=== PATIENT | female | born 1955 | race Caucasian/White ===

== ENCOUNTER → 2022-07-09 17:11 | Outpatient (CLI) | payer MEDICARE, SELFPAY ==
--- NOTE | 2022-07-09 | DI.MG.S_ITS ---
BILATERAL DIGITAL SCREENING MAMMOGRAM 3D/2D WITH CAD: 07/09/2022 CLINICAL: Routine screening. Family history of breast cancer. Comparison is made to exams dated: 04/24/2020 mammogram, 07/14/2017 mammogram, and 07/13/2016 mammogram - outside location. There are scattered areas of fibroglandular density in both breasts (category b / 25%-50% glandular tissue). Current study was also evaluated with a Computer Aided Detection (CAD) system. No significant masses, calcifications, or other findings are seen in either breast. There has been no significant interval change. IMPRESSION: NEGATIVE There is no mammographic evidence of malignancy. A 1 year screening mammogram is recommended. Based on the Tyrer Cuzick model (a risk assessment model) the patient's lifetime risk is 5.0% and her 10 year risk is 3.0%. According to the ACR, ACS, and NCCN guidelines, an annual breast MRI exam along with mammogram is recommended if the patient's lifetime risk is 20% or greater. This exam was interpreted at Station ID: [id number]. NOTE: For mammograms, a report in lay terms will be sent to the patient. Approximately 15% of breast malignancies will not be visualized mammographically. In the management of a palpable breast mass, a negative mammogram must not discourage biopsy of a clinically suspicious lesion. Electronically Signed By: Nabil martínez/cricket:07/10/2022 10:11:08 letter sent: Normal Exam ACR BI-RADS Category 1: Negative 3341F
== END ==
PROVIDERS: PCP Internal Medicine; Referring Provider Internal Medicine; Visit Provider Internal Medicine
DX: Z12.31 Encounter for screening mammogram for malignant neoplasm of breast (principal); Z80.3 Family history of malignant neoplasm of breast
CPT/HCPCS: 77063; 77067

== ENCOUNTER → 2022-12-04 16:09 | Outpatient (CLI) | payer MEDICARE, SELFPAY ==
--- NOTE | 2022-12-04 | DI.ECHO.S_ITS ---
[facility] [address] [place] [address] [facility]---------+ [facility] +---------+ : : [id number] : : : : [place], [place] : : : : [address] : : : : Phone: [phone]---------+ Echocardiogram Report + + :Name: CUONG CASPER EStudy Date: 12/04/2022 Height: 67 in : :[facility] : Weight: 375 lb : : Gender: Female BSA: 2.6 m2 : :: 1955 Age: 67 yrs BP: 132/70 mmHg: :Reason For Study: Nonrheumatic mitral insufficiency, s/p : :mitral valve repair : :Ordering Physician: Marleny : :Monica Stevenson Performed By: Arlin Ahmadi : :Referring: MARLENY STEVENSON : + + Interpretation Summary The left ventricle is normal in size and wall thickness. The ejection fraction is estimated to be 55-60%. Diastolic parameters suggest a pseudonormalization pattern, consistent with probable elevated filling pressures. The right ventricle is normal in size and function. The mitral valve has been surgically repaired and an annuloplasty ring sewn in place. Mitral annulus calcification as well as thickening of the mitral leaflets. Decreased excursion of posterior mitral leaflet with some calcification including calcification of chordae. Associated eccentric moderate mitral regurgitation. Peak E velocity across mitral valve about 1.44 m/s and mean gradient about 4 mmHg. Mild mitral stenosis. No significant mitral stenosis. There is mild aortic regurgitation. There is mild to moderate tricuspid regurgitation. The right ventricular systolic pressure is estimated to be at least 32 mmHg based on an estimated right atrial pressure of 8 mm Hg. Procedure: A two-dimensional transthoracic echocardiogram with color flow and Doppler was performed. The study quality was technically adequate. The patient had an echocardiogram, but there is no comparison study available. The patient was in sinus rhythm with heart rates between 65-67 bpm during the exam. Left Ventricle: The left ventricle is normal in size and wall thickness. There is no thrombus. The ejection fraction is estimated to be 55-60%. There are no focal wall motion abnormalities. Diastolic parameters suggest a pseudonormalization pattern, consistent with probable elevated filling pressures. Right Ventricle: The right ventricle is normal in size and function. Atria: The left atrium is moderately dilated. The right atrium is normal in size. There is no Doppler evidence for an interatrial shunt. Mitral Valve: Mitral annulus calcification as well as thickening of the mitral leaflets. Decreased excursion of posterior mitral leaflet with some calcification including calcification of chordae. Associated eccentric moderate mitral regurgitation. Peak E velocity across mitral valve about 1.44 m/s and mean gradient about 4 mmHg. Mild mitral stenosis. No significant mitral stenosis. The mitral valve has been surgically repaired and an annuloplasty ring sewn in place. There is moderate mitral regurgitation. Aortic Valve: The aortic valve is trileaflet. The aortic valve opens well. The aortic valve is slightly calcified. There is discrete nodular thickening of the right coronary cusp. There is no aortic valve stenosis. There is mild aortic regurgitation. Tricuspid Valve: The tricuspid valve is normal. There is mild to moderate tricuspid regurgitation. The right ventricular systolic pressure is estimated to be at least 32 mmHg based on an estimated right atrial pressure of 8 mm Hg. Pulmonic Valve: The pulmonic valve leaflets are thin and pliable; valve motion is normal. There is mild pulmonic regurgitation. Great Vessels: The aortic root is normal size. The ascending aorta is normal in size. The IVC is of normal diameter and collapses less than 50% with a sniff. This suggests a right atrial pressure of 8 mm Hg. Pericardium/ Pleura There is no pericardial effusion. There is no pleural effusion. MMode/2D Measurements & Calculations LVIDd: 4.8 cm LVOT diam: 2.1 cm LVIDs: 3.3 cm Ao root diam: 3.4 cm FS: 31.9 % asc Aorta Diam: 2.9 cm EPSS: 0.31 cm IVSd: 1.0 cm LVPWd: 0.90 cm LV velez. diameter/BSA (cm/m^2): 1.8 LV sys. diameter/BSA (cm/m^2): 1.2 LA A2 area: 28.0 cm2 RA long axis: 4.0 cm LA A4 area: 20.3 cm2 RA area: 13.6 cm2 LA length (vol): 5.0 cm RA vol: 39.0 ml LA vol: 96.0 ml RA : 14.8 ml/m2 LA vol index: 36.4 ml/m2 IVC diam: 1.9 cm RVD1 (basal): 4.1 cm TAPSE: 1.9 cm Doppler Measurements & Calculations Ao V2 max: 141.6 cm/sec LVOT Max Dhruv: 99.1 cm/sec Ao V2 mean: 109.5 cm/sec LV V1 max P.9 mmHg Ao max P.0 mmHg LV V1 VTI: 21.1 cm Ao mean P.2 mmHg BRIT(I,D): 2.3 cm2 Ao V2 VTI: 32.9 cm BRIT(V,D): 2.5 cm2 sev ratio: 0.64 BRIT indexed to BSA (cm^2/m^2): 0.88 AI P1/2t: 557.6 msec AI dec slope: 227.1 cm/sec2 MV E max dhruv: 144.4 cm/sec TR max dhruv: 245.1 cm/sec MV A max dhruv: 122.0 cm/sec TR max P.0 mmHg MV E/A: 1.2 PA V2 max: 89.2 cm/sec Med Peak E' Dhruv: 5.9 cm/sec PA V2 mean: 67.4 cm/sec E/E' med: 24.5 PA mean P.0 mmHg Lat Peak E' Dhruv: 12.6 cm/sec E/E' lat: 11.4 E/e' average: 18.0 MV dec time: 0.27 sec MVA(VTI): 1.6 cm2 MR ERO: 0.11 cm2 MV V2 mean: 93.2 cm/sec MR PISA: 1.6 cm2 MV mean P.0 mmHg MR flow rate: 60.3 cm3/sec MV V2 VTI: 49.0 cm MR PISA radius: 0.51 cm SV(LVOT): 76.6 ml Reading Physician:12:58 PM
== END ==
PROVIDERS: PCP Internal Medicine; Referring Provider Internal Medicine Cardiovascular Disease; Visit Provider Internal Medicine Cardiovascular Disease
DX: I08.3 Combined rheumatic disorders of mitral, aortic and tricuspid valves (principal)
CPT/HCPCS: 93306

== ENCOUNTER → 2023-08-23 11:10 | Outpatient (CLI) | payer MEDICARE, SELFPAY ==
[2023-08-23 12:24] LABS: Hematocrit 37.4 % (36-46); Hemoglobin 12.7 g/dL (12.0-16.0); Mean Corpuscular HGB Conc 33.9 % (30-36); Mean Corpuscular Hemoglobin 31.9 PG (26-34); Mean Corpuscular Volume 94.1 fL (80-100); Platelet Count 211 X10^3/uL (150-400); Red Blood Cell Count 3.98 X10^6/uL (4.0-5.2); Red Cell Distribution Width 13.1 % (11.6-14.8)
[2023-08-23 12:52] LABS: Alanine Aminotransferase 27 IU/L (<35); Albumin 4.4 g/dL (3.5-5.0); Albumin Globulin Ratio 1.4 (1.0-2.8); Alkaline Phosphatase 44 U/L (38-126); Aspartate Aminotransferase 35 IU/L (14-36); BUN Creatinine Ratio 19.5 (6-22); Bilirubin Total 0.7 mg/dL (0.2-1.3); Blood Urea Nitrogen 15 mg/dL (7-17); Calcium 9.5 mg/dL (8.4-10.2); Carbon Dioxide 28 mmol/L (22-32); Chloride 105 mmol/L (98-107); Cholesterol 229 mg/dL (140-199); Estimated Glomerular Filt Rate > 60 mL/min (>60); Globulin 3.1 g/dL (1.7-4.1); Glucose 88 mg/dL (80-110); HDL Cholesterol 66 mg/dL (40-60); HEMOLYSIS < 15 (0-50); LDL Cholesterol Calculated 150 mg/dL (<100); Sodium 138 mmol/L (137-145); Total Protein 7.5 g/dL (6.3-8.2); Triglycerides 66 mg/dL (35-150)
[2023-08-23 13:11] LABS: TSH w/ Reflex to FT4 1.83 uIU/mL (0.47-4.68)
[2023-08-25 11:59] LABS: Calcium 9.4 mg/dL (8.7-10.3); Parathyroid Hormone, Intact 73 pg/mL (15-65)
== END ==
PROVIDERS: PCP Internal Medicine; Referring Provider Student in an Organized Health Care Education/Training Program; Visit Provider Student in an Organized Health Care Education/Training Program
DX: M81.0 Age-related osteoporosis without current pathological fracture (principal); I10 Essential (primary) hypertension; I34.0 Nonrheumatic mitral (valve) insufficiency
CPT/HCPCS: 36415; 80053; 80061; 82310; 83970; 84443; 85027

== ENCOUNTER → 2023-09-21 13:54 | Outpatient (CLI) | payer MEDICARE, SELFPAY ==
--- NOTE | 2023-09-21 13:55 | DI.RAD.S_ITS ---
PROCEDURE: XR LUMBAR SPINE MIN 4V INDICATIONS: LOW BACK PAIN TECHNIQUE: 5 views of the lumbar spine were acquired, including bilateral oblique views. COMPARISON: None. FINDINGS: Bones: Moderate leftward spinal curvature centered at L2-L3. There is 5 mm of anterolisthesis of L3 on L4. 5 mm of anterolisthesis of L5 on S1. Vertebral body heights are well maintained. No definite traumatic subluxation. Oblique views are limited by overlapping bowel gas and spondylotic positioning, no definite abnormality. Overall moderate degenerative changes with facet arthropathy, disc space height loss, and osteophytes. Soft tissues: Moderate fecal loading. Sternotomy and cardiac valve device. No suspicious calcifications. IMPRESSION: Moderate degenerative changes and multilevel spondylolisthesis. Leftward scoliosis. If there is high concern for further derangement, consider MRI evaluation. Dictated by: Marques Balderrama M.D. on 09/21/2023 at 15:29 Approved by: Marques Balderrama M.D. on 09/21/2023 at 15:31
== END ==
PROVIDERS: PCP Internal Medicine; Referring Provider Anesthesiology; Visit Provider Anesthesiology
DX: M47.816 Spondylosis without myelopathy or radiculopathy, lumbar region (principal); M43.16 Spondylolisthesis, lumbar region; M43.17 Spondylolisthesis, lumbosacral region; M41.9 Scoliosis, unspecified; M54.50 Low back pain, unspecified
CPT/HCPCS: 72110

== ENCOUNTER → 2023-10-11 12:54 | Outpatient (CLI) | payer OTHER, SELFPAY ==
--- NOTE | 2023-10-11 12:55 | DI.MG.S_ITS ---
BILATERAL DIGITAL SCREENING MAMMOGRAM 3D/2D WITH CAD: 10/11/2023 CLINICAL: Routine screening. Comparison is made to exams dated: 07/09/2022 mammogram - [facility], 04/24/2020 mammogram, and 07/14/2017 mammogram - outside location. There are scattered areas of fibroglandular density in both breasts (category b / 25%-50% glandular tissue). Current study was also evaluated with a Computer Aided Detection (CAD) system. No significant masses, calcifications, or other findings are seen in either breast. There has been no significant interval change. IMPRESSION: NEGATIVE There is no mammographic evidence of malignancy. A 1 year screening mammogram is recommended. Based on the Tyrer Cuzick model (a risk assessment model) the patient's lifetime risk is 4.8% and her 10 year risk is 3.0%. According to the ACR, ACS, and NCCN guidelines, an annual breast MRI exam along with mammogram is recommended if the patient's lifetime risk is 20% or greater. This exam was interpreted at Station ID: [id number]. NOTE: For mammograms, a report in lay terms will be sent to the patient. Approximately 15% of breast malignancies will not be visualized mammographically. In the management of a palpable breast mass, a negative mammogram must not discourage biopsy of a clinically suspicious lesion. Electronically Signed By: Shana lopez/cricket:10/11/2023 14:55:48 letter sent: Normal Exam ACR BI-RADS Category 1: Negative 3341F
== END ==
PROVIDERS: PCP Internal Medicine; Referring Provider Internal Medicine; Visit Provider Internal Medicine
DX: Z12.31 Encounter for screening mammogram for malignant neoplasm of breast (principal); R92.323 Mammographic fibroglandular density, bilateral breasts
CPT/HCPCS: 77063; 77067

== ENCOUNTER → 2024-02-22 17:01 | Outpatient (CLI) | payer MEDICARE, SELFPAY ==
[2024-02-22 17:55] LABS: Aspartate Aminotransferase 34 IU/L (14-36); Cholesterol 137 mg/dL (140-199); HDL Cholesterol 67 mg/dL (40-60); LDL Cholesterol Calculated 41 mg/dL (<100); Triglycerides 144 mg/dL (35-150)
== END ==
PROVIDERS: PCP Internal Medicine; Referring Provider Internal Medicine; Visit Provider Internal Medicine
DX: E78.2 Mixed hyperlipidemia (principal)
CPT/HCPCS: 36415; 80061; 84450

== ENCOUNTER → 2024-03-06 13:42 | Outpatient (CLI) | payer MEDICARE, SELFPAY ==
--- NOTE | 2024-03-06 13:43 | DI.MRI.S_ITS ---
PROCEDURE: MR LUMBAR SPINE WO CON INDICATIONS: Chronic low back pain, RLE pain TECHNIQUE: Noncontrast sagittal T1 spin echo and T2 fast echo, sagittal STIR, and T2 fast spin echo through the lumbar spine. In cases with scoliosis, additional coronal T2 fast spin echo may be performed. COMPARISON: [facility], CR, XR LUMBAR SPINE MIN 4V, 09/21/2023, 14:02. FINDINGS: Image quality: Excellent. Alignment and Curvature: Moderate levocurvature centered at L1. Trace anterolisthesis of L3 on L4 and L5 on S1. Bone Marrow: Marrow is of normal overall signal. No acute vertebral body compression fractures. Spinal Cord: Conus medullaris terminates at the L1-L2 level. Visualized cord demonstrates normal signal and size. Paraspinous Soft Tissues: No paravertebral masses. T11-T12: No canal stenosis or foraminal stenosis. T12-L1: Disc bulge. No canal stenosis. Mild right foraminal stenosis. L1-L2: Disc bulge. Mild facet hypertrophy. No canal stenosis. Quie-qs-ewxpahzz right foraminal stenosis. L2-L3: Disc bulge. Facet hypertrophy. No canal stenosis. Xdsv-cu-yzomphzz right foraminal stenosis. L3-L4: Disc bulge. Trace anterolisthesis of L3 on L4. Prominent bilateral facet hypertrophy. No canal stenosis or significant foraminal stenosis. L4-L5: Severe chronic disc height loss. Trace disc bulge. Facet hypertrophy. No canal stenosis. Deox-qi-jjlncsfv left foraminal stenosis. L5-S1: Trace anterolisthesis of L5 on S1. Disc bulge. Facet hypertrophy. No canal stenosis. Mild right foraminal stenosis. Moderate to severe left foraminal stenosis secondary to foraminal disc bulge with a degree of left foraminal L5 nerve root impingement. IMPRESSION: 1. Moderate levocurvature. 2. Multilevel facet arthropathy. 3. No canal stenosis. 4. Multilevel foraminal narrowing as described above. There is no right-sided foraminal nerve root impingement. At L5-S1, there is a degree of left foraminal L5 nerve root impingement. Dictated by: Angel Reyes M.D. on 03/06/2024 at 15:09 Approved by: Angel Reyes M.D. on 03/06/2024 at 15:17
== END ==
PROVIDERS: PCP Internal Medicine; Referring Provider Anesthesiology; Visit Provider Anesthesiology
DX: M47.816 Spondylosis without myelopathy or radiculopathy, lumbar region (principal); M47.817 Spondylosis without myelopathy or radiculopathy, lumbosacral region; M48.07 Spinal stenosis, lumbosacral region; M48.061 Spinal stenosis, lumbar region without neurogenic claudication; M54.50 Low back pain, unspecified; M79.604 Pain in right leg
CPT/HCPCS: 72148

== ENCOUNTER → 2024-08-30 09:02 | Outpatient (CLI) | payer MEDICARE, SELFPAY ==
[2024-08-30 09:54] LABS: Hematocrit 36.6 % (36-46); Hemoglobin 12.5 g/dL (12.0-16.0); Mean Corpuscular Hemoglobin 32.4 PG (26-34); Mean Corpuscular Volume 95.1 fL (80-100); Platelet Count 220 X10^3/uL (150-400); Red Blood Cell Count 3.85 X10^6/uL (4.0-5.2); Red Cell Distribution Width 12.9 % (11.6-14.8); White Blood Cell Count 4.4 X10^3/uL (4.5-11.0)
[2024-08-30 10:27] LABS: Alanine Aminotransferase 25 IU/L (<35); Albumin 4.1 g/dL (3.5-5.0); Albumin Globulin Ratio 1.6 (1.0-2.8); Alkaline Phosphatase 35 U/L (38-126); Aspartate Aminotransferase 32 IU/L (14-36); BUN Creatinine Ratio 22.9 (6-22); Bilirubin Total 0.6 mg/dL (0.2-1.3); Blood Urea Nitrogen 16 mg/dL (7-17); Calcium 9.5 mg/dL (8.4-10.2); Carbon Dioxide 28 mmol/L (22-32); Chloride 102 mmol/L (98-107); Cholesterol 150 mg/dL (140-199); Estimated Glomerular Filt Rate > 60 mL/min (>60); Globulin 2.5 g/dL (1.7-4.1); Glucose 86 mg/dL (80-110); HDL Cholesterol 74 mg/dL (40-60); HEMOLYSIS < 15 (0-50); LDL Cholesterol Calculated 64 mg/dL (<100); Sodium 136 mmol/L (137-145); Total Protein 6.6 g/dL (6.3-8.2); Triglycerides 58 mg/dL (35-150)
[2024-08-30 10:54] LABS: Creatinine Urine Random 151.36 mg/dL
[2024-08-30 10:58] LABS: Microalbumin Urine Random 0.7 mg/dL (0-1.6)
== END ==
PROVIDERS: PCP Internal Medicine; Referring Provider Internal Medicine; Visit Provider Internal Medicine
DX: E21.3 Hyperparathyroidism, unspecified (principal); I10 Essential (primary) hypertension; I34.0 Nonrheumatic mitral (valve) insufficiency
CPT/HCPCS: 36415; 80053; 80061; 82043; 82397; 82570; 85027

== ENCOUNTER → 2025-04-11 09:35 | Outpatient (CLI) | payer MEDICARE, SELFPAY ==
--- NOTE | 2025-04-11 09:37 | DI.NM.S_ITS ---
PROCEDURE: NM TASH PERF SPECT REST & STR Rest and exercise myocardial perfusion SPECT with gated imaging and ejection fraction RADIOPHARMACEUTICAL: 26.7 mCi Tc-99m sestamibi IV at rest and 26.8 mCi Tc-99m sestamibi IV at peak exercise. A 2-day protocol was performed. INDICATIONS: Dyspnea on exertion TECHNIQUE: Radiopharmaceutical was injected at peak stress test, and also at rest. SPECT images were obtained. SPECT myocardial perfusion images were displayed in short axis, horizontal long axis, and vertical long axis views. Gated images were reviewed using Stir software. COMPARISON: None. CARDIAC STRESS: A standard Abhijit treadmill exercise tolerance test was performed by the patient under the supervision of an attending staff. The patient exercised for whole 8 minutes and 0 seconds; 10.1 METS; functional aerobic impairment (SIMONE) is -41%. Hemodynamic data: There is normal blood pressure and heart rate response to exercise stress. Patient achieved 92% of maximum predicted heart rate at peak exercise. Peak blood pressure 166/92. Symptoms: Patient denied chest pain during exercise. She did exhibit moderate shortness of breath. EKG: Rest ECG sinus rhythm. Exercise ECG sinus tachycardia, no ST segment changes, rare PVCs. FINDINGS: Raw data: There is good myocardial labeling by radiotracer. No significant motion artifacts. Wskl-bz-ksavm ratio is 0.25 (normal is less than 0.38 for sestamibi tracer, and less than 0.50 for thallium tracer). Left ventricle function: Gated images demonstrate normal left ventricle wall thickening. No segmental wall motion abnormality. No transient ischemic dilation; TID is 0.96 (normal less than 1.3). The left ventricle resting end-diastolic volume is 119 mL. Left ventricle stress ejection fraction is 69%; normal values are above 45%. Myocardial perfusion: There is normal distribution of activity in the left and right ventricular myocardium. No fixed or reversible perfusion defects. IMPRESSION: Low risk study. No evidence of exercise-induced ischemia on ECG or SPECT imaging. Normal LV size and function. Normal hemodynamic response. Very good exercise capacity. Dictated by: Shayla Way D.O. on 04/16/2025 at 16:55 Approved by: Shayla Way D.O. on 04/16/2025 at 16:59
== END ==
LOC: NUCM 09:36
PROVIDERS: PCP Internal Medicine; Referring Provider Nurse Practitioner Acute Care; Visit Provider Nurse Practitioner Acute Care
DX: R07.9 Chest pain, unspecified (principal); R06.09 Other forms of dyspnea
CPT/HCPCS: 78452; 93017; A9502

== ENCOUNTER → 2025-06-22 10:30 | Outpatient (CLI) | payer MEDICARE, SELFPAY ==
--- NOTE | 2025-06-22 10:33 | DI.US.S_ITS ---
PROCEDURE: US CAROTID DOPPLER BI INDICATIONS: Hx of arotid artery dissection TECHNIQUE: Color and pulse Doppler interrogation was performed of both carotid systems, with image documentation and velocity measurements. COMPARISON: None. FINDINGS: Stenosis calculations are based on SRU (Society of Radiologists in Ultrasound) criteria. Right side: Brachial blood pressure: 121/69 mm Hg. Common carotid artery peak systolic velocity: 93 cm/sec. Internal carotid artery peak systolic velocity: 101 cm/sec. Internal carotid artery end diastolic velocity: 30 cm/sec. External carotid artery peak systolic velocity: 80 cm/sec. ICA/CCA peak systolic ratio: 1.1 . Jose scale imaging description: Mild atherosclerotic plaque, including noncalcified plaque of the distal common carotid artery. Percent internal carotid artery stenosis: Less than 50 percent . Vertebral artery: Flow direction is antegrade. Left side: Brachial blood pressure: 108/70 mm Hg. Common carotid artery peak systolic velocity: 66 cm/sec. Internal carotid artery peak systolic velocity: 88 cm/sec. Internal carotid artery end diastolic velocity: 29 cm/sec. External carotid artery peak systolic velocity: 110 cm/sec. ICA/CCA peak systolic ratio: 1.3 . Jose scale imaging description: Extensive atherosclerotic plaque. Percent internal carotid artery stenosis: Less than 50 percent . Vertebral artery: Flow direction is antegrade. IMPRESSION: 1. In the right carotid artery, there is less than 50 percent stenosis based on peak systolic velocity criteria. Soft plaque noted in the distal common carotid artery, which has a high risk for rupture and embolization. 2. In the left carotid artery, there is less than 50 percent stenosis based on peak systolic velocity criteria. 3. Antegrade vertebral arteries. Dictated by: Zi Godfrey M.D. on 06/22/2025 at 15:09 Approved by: Zi Godfrey M.D. on 06/22/2025 at 15:10
== END ==
LOC: US 10:32
PROVIDERS: PCP Family Medicine; Referring Provider Internal Medicine Cardiovascular Disease; Visit Provider Internal Medicine Cardiovascular Disease
DX: I65.23 Occlusion and stenosis of bilateral carotid arteries (principal); Z86.79 Personal history of other diseases of the circulatory system
CPT/HCPCS: 93880

== ENCOUNTER → 2025-07-30 08:33 | Outpatient (CLI) | payer MEDICARE, SELFPAY ==
[2025-07-30 09:22] LABS: Hematocrit 37.6 % (36-46); Hemoglobin 12.9 g/dL (12.0-16.0); Mean Corpuscular HGB Conc 34.4 % (30-36); Mean Corpuscular Hemoglobin 32.2 PG (26-34); Mean Corpuscular Volume 93.7 fL (80-100); Platelet Count 228 X10^3/uL (150-400)
[2025-07-30 09:50] LABS: Albumin 4.5 g/dL (3.5-5.0); Blood Urea Nitrogen 16 mg/dL (7-17); Calcium 9.2 mg/dL (8.4-10.2); Carbon Dioxide 28 mmol/L (22-32); Chloride 103 mmol/L (98-107); Estimated Glomerular Filt Rate > 60 mL/min (>60); Glucose 89 mg/dL (70-99); HEMOLYSIS < 15 (0-50); Phosphorous 3.6 mg/dL (2.8-4.1); Potassium 4.2 mmol/L (3.4-5.1); Sodium 137 mmol/L (137-145)
[2025-07-30 09:52] LABS: Alanine Aminotransferase 32 IU/L (<35); Albumin 4.3 g/dL (3.5-5.0); Albumin Globulin Ratio 1.4 (1.0-2.8); Alkaline Phosphatase 61 U/L (38-126); Blood Urea Nitrogen 16 mg/dL (7-17); Calcium 9.0 mg/dL (8.4-10.2); Carbon Dioxide 28 mmol/L (22-32); Chloride 103 mmol/L (98-107); Cholesterol 166 mg/dL (140-199); Estimated Glomerular Filt Rate > 60 mL/min (>60); Globulin 3.0 g/dL (1.7-4.1); Glucose 85 mg/dL (70-99); HDL Cholesterol 71 mg/dL (40-60); HEMOLYSIS < 15 (0-50); Potassium 4.1 mmol/L (3.4-5.1); Sodium 136 mmol/L (137-145); Total Protein 7.3 g/dL (6.3-8.2); Triglycerides 86 mg/dL (35-150)
[2025-07-30 10:05] LABS: Vitamin D 25 Hydroxy (D3) 70.3 ng/mL (30.0-100.0)
[2025-07-30 10:19] LABS: TSH w/ Reflex to FT4 1.84 uIU/mL (0.47-4.68)
== END ==
PROVIDERS: PCP Family Medicine; Referring Provider Family Medicine; Visit Provider Student in an Organized Health Care Education/Training Program
DX: Z00.00 Encounter for general adult medical examination without abnormal findings (principal); I50.32 Chronic diastolic (congestive) heart failure; M81.0 Age-related osteoporosis without current pathological fracture; E21.3 Hyperparathyroidism, unspecified; E66.3 Overweight; G47.33 Obstructive sleep apnea (adult) (pediatric); L65.9 Nonscarring hair loss, unspecified
CPT/HCPCS: 36415; 80053; 80061; 80069; 82306; 84443; 85027

== ENCOUNTER → 2025-08-18 09:06 | Outpatient (CLI) | payer MEDICARE, SELFPAY ==
--- NOTE | 2025-08-18 09:08 | DI.MG.S_ITS ---
MM screening mammo BI: 08/18/2025. BI-RADS: 1 CLINICAL: 70-year old female for bilateral screening mammogram. Tyrer-Cuzick lifetime risk of 4.4%. No personal or first-degree family history of breast cancer. Current reported family history of breast cancer: paternal aunt. The patient is status- post reduction mammoplasty. PRIOR EXAMS 10/11/2023, 07/09/2022. MAMMOGRAPHY TECHNIQUE: 2D and 3D (tomosynthesis) digital mammographic views obtained, with additional images as needed for full coverage. Current study was also evaluated with a Computer Aided Detection (CAD) system. DENSITY B. There are scattered areas of fibroglandular density. MAMMOGRAPHY FINDINGS Bilateral: No suspicious mass, asymmetry, microcalcification, or other abnormality seen. No significant change from comparison. IMPRESSION: * No evidence of malignancy. RECOMMENDATIONS Bilateral * Annual screening mammography. OVERALL ASSESSMENT CATEGORY BI-RADS-1: Negative. The [employer] recommends annual screening mammography beginning at age 40 for women with average risk of breast cancer. ELECTRONICALLY SIGNED: Daria Anthony M.D. on 08/20/2025 at 09:22:47 AM PT Interpreting Station ID: [id number]
== END ==
LOC: MAMMO 09:07
PROVIDERS: PCP Family Medicine; Referring Provider Family Medicine; Visit Provider Family Medicine
DX: Z12.31 Encounter for screening mammogram for malignant neoplasm of breast (principal); Z80.3 Family history of malignant neoplasm of breast
CPT/HCPCS: 77063; 77067

== ENCOUNTER 2025-09-10 19:28 | Emergency (ER) | payer MEDICARE, SELFPAY ==
[2025-09-10] VITALS (10 sets, daily range): BP systolic 111–140; BP diastolic 57–68; PULSE 63–71; RESP 15–52; TEMP 36.8; O2SAT 90–96; BMI 26.6
--- NOTE | 2025-09-10 19:41 | EKG_ITS ---
[address] [address] Test Date: 2025-09-10 Pat Name: Alma Bejarano Department: Room: Gender: Female [employer] D[employer] Operator: : 1955 Requested By: Order Number: [id number] Reading MD: Gagan Melendez MD Measurements Intervals [place] Rate: 71 P: 46 HI: 174 QRS: 8 QRSD: 98 T: 62 QT: 444 QTc: 482 Interpretive Statements Normal sinus rhythm Moderate voltage criteria for LVH, may be normal variant ( R in aVL , [place] product ) Electronically Signed On 09-11-2025 7:15:53 PST by Gagan Melendez MD
--- NOTE | 2025-09-10 19:41 | DI.RAD.S_ITS ---
PROCEDURE: XR CHEST 1V INDICATIONS: Chest Pain TECHNIQUE: One view of the chest was acquired. COMPARISON: None. FINDINGS: Surgical changes and devices: Median sternotomy wires are present and appear intact. Prior valvuloplasty. Lungs and pleura: Lungs are clear. No pleural effusions or pneumothorax. Mediastinum: Mediastinal contours appear normal. Heart size is normal. Bones and chest wall: No suspicious bony lesions. Overlying soft tissues appear unremarkable. IMPRESSION: No acute cardiopulmonary abnormalities or focal consolidation. Dictated by: Romeo Murphy M.D. on 09/10/2025 at 20:14 Approved by: Romeo Murphy M.D. on 09/10/2025 at 20:16
[2025-09-10 19:50] LABS: INR 1.0 (0.9-1.3); Prothrombin Time 11.7 SECONDS (9.4-12.5)
--- NOTE | 2025-09-10 19:51 | ED.CHESTPAIN ---
HPI - Chest Pain General Chief Complaint: Chest Pain Stated Complaint: chest pain about 45 minutes Time Seen by Provider: 09/10/25 19:50 Mode of arrival: Ambulatory History of Present Illness HPI narrative: This is a 70-year-old white female who presents via EMS with substernal chest pain that began earlier night she says she was reading a book when it started she describes the pain as sharp nonradiating and reproducible no associated nausea vomiting diaphoresis or lightheadedness. Patient does state she had a normal stress test approximately a month and a half ago. Patient was given aspirin and nitro by the paramedics the patient is currently pain-free. Related Data Home Medications ?Medication ?Instructions ?Recorded ?Confirmed aspirin 81 mg tablet,delayed 81 mg PO DAILY 01/28/22 05/25/25 release cholecalciferol (vitamin D3) 50 4,000 unit PO DAILY 01/28/22 05/25/25 mcg (2,000 unit) capsule denosumab 60 mg/mL subcutaneous 60 mg SUBCUT [id number] 01/28/22 05/25/25 syringe (Prolia) lisinopril 5 mg tablet 5 mg PO DAILY 01/28/22 05/25/25 potassium chloride 10 mEq 20 meq PO DAILY 01/28/22 05/25/25 tablet,extended release(part/cryst) furosemide 40 mg tablet 40 mg PO DAILY 06/05/25 Previous Rx's ?Medication ?Instructions ?Recorded escitalopram oxalate 20 mg tablet 20 mg PO DAILY #90 tabs 06/05/25 rosuvastatin 10 mg tablet 10 mg PO DAILY #100 tabs 06/06/25 estradiol 10 mcg vaginal tablet 10 mcg vaginal 3XW #12 tabs 07/06/25 (Vagifem) tirzepatide 10 mg/0.5 mL See Rx Instructions .Route 08/16/25 subcutaneous pen injector .COMPLEX #10 mL Allergies Allergy/AdvReac Type Severity Reaction Status Date / Time Dermabond AdvReac Mild rash Uncoded 06/22/25 09:31 Review of Systems Review of Systems Narrative: GENERAL: Denies chills, fatigue, malaise, fever, sweats. HEENT: Denies sinus pain, ear pain, sore throat, difficulty swallowing, dizziness. RESPIRATORY: Denies dyspnea, cough, wheezing, hemoptysis, sputum. CARDIOVASCULAR: See HPI GASTROINTESTINAL: Denies nausea, vomiting, abdominal pain, diarrhea, constipation, melena. : Denies dysuria, frequency, incontinence, hematuria, urinary retention. MUSCULOSKELETAL: denies weakness, joint pain, or bony pain SKIN: Denies rash, skin lesions, or other NEUROLOGIC: Denies weakness, headache, numbness, change in speech, confusion, seizures, incoordination. PSYCHIATRIC: No concerning psychosocial issues. 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) Hypertensive heart disease with heart failure Menopausal syndrome Lumbar radiculopathy Chronic congestive heart failure with left ventricular diastolic dysfunction Major depressive disorder, recurrent, in partial remission Lumbar facet arthropathy Lumbar degenerative disc disease Scoliosis Lumbar spondylosis History of abnormal cervical Pap smear Mixed hyperlipidemia History of carotid artery dissection Ocular migraine Generalized anxiety disorder Obstructive sleep apnea syndrome Herpes (~1986) Hearing loss Cataracts, bilateral Human papilloma virus Abnormal Pap smear of cervix (~2007) Frequent UTI (~2021) Cervical dysplasia Overweight Hyperparathyroidism Age-related osteoporosis without current pathological fracture Mitral regurgitation Surgical History Anesthesia History of hysterectomy (~2017) History of surgery (~2021) History of knee replacement History of mitral valve repair (~07/2016) Family History Father History of heart disease Mother Hypertension Brother History of heart disease Social History marital status: details: , two grown sons, retired hand alterations tailor Exam Narrative Exam Narrative: GENERAL: [] year old patient appears stated age. Well-developed patient, in mild distress. HEAD: Atraumatic. Normocephalic. EYES: Pupils equal round and reactive. Extraocular motions intact. No scleral icterus. No injection or drainage. ENT: Nose without bleeding, purulent drainage. Throat without erythema, tonsillar hypertrophy or exudate. Airway patent. NECK: Trachea midline. Non tender There is reproducible left-sided chest wall thinners CARDIOVASCULAR: Regular rate and rhythm without murmurs, gallops, or rubs. RESPIRATORY: Clear to auscultation. Breath sounds equal bilaterally. No wheezes, rales, or rhonchi. GASTROINTESTINAL: Abdomen soft, non-tender, nondistended. EXTREMITIES: No edema or joint tenderness. BACK: Nontender without deformity or crepitance. No flank tenderness. NEURO: AOx3. SKIN: No rash or erythema of visible areas Initial Vital Signs Initial Vital Signs: Vital Signs Temperature 98.2 F 09/10/25 19:38 Pulse Rate 71 09/10/25 19:38 Respiratory Rate 18 09/10/25 19:38 Blood Pressure 140/68 09/10/25 19:38 Pulse Oximetry 94 09/10/25 19:38 Oxygen Delivery Method Room Air 09/10/25 19:38 Course Orders Ordered: ED Orders 09/10/25 19:25 Comprehensive Metabolic Panel Stat Lipase Stat Magnesium Stat NT-proBNP (BNP-Adult 18+) Stat PTT Partial Thromboplastin Igor Stat Prothrombin Time INR Stat Troponin & CK Cardiac Panel Stat 09/10/25 19:41 XR chest 1V Stat EKG-12 Lead Stat 09/10/25 21:10 Complete Blood Count AUTO DIFF Stat 09/10/25 21:58 Trop I [Troponin I] Stat Discontinued Medications Aspirin (Aspirin 81 Mg Chew Tab) 324 mg PO NOW ONE Stop: 09/10/25 19:42 Last Admin: 09/10/25 20:04 Dose: Not Given Documented By: GW Vital Signs Vital signs: Vital Signs - 8 hr 09/10/25 19:38 Temperature 98.2 F Pulse Rate 71 Respiratory Rate 18 Blood Pressure 140/68 Pulse Oximetry 94 Oxygen Delivery Method Room Air MDM - Chest Pain Lab Data 09/10/25 21:10 09/10/25 19:25 Labs: Lab Results 09/10/25 09/10/25 09/10/25 Range/Units 19:25 21:10 22:03 WBC 5.3 (4.5-11.0) X10^3/uL RBC 3.46 L (4.0-5.2) X10^6/uL Hgb 11.3 L (12.0-16.0) g/dL Hct 32.3 L (36-46) % MCV 93.4 (80-100) fL MCH 32.5 (26-34) PG MCHC 34.8 (30-36) % RDW 12.8 (11.6-14.8) % Plt Count 185 (150-400) X10^3/uL Neut % (Auto) 52.5 (50-75) % Lymph % (Auto) 37.8 (25-40) % Stearns % (Auto) 6.7 (3-14) % Eos % (Auto) 2.1 (2-4) % Baso % (Auto) 0.9 (0-2) % Neut # (Auto) 2800 (1592-2818) /uL Lymph # (Auto) 2000 (1680-6277) /uL Stearns # (Auto) 400 (0-900) /uL Eos # (Auto) 100 (0-450) /uL Baso # (Auto) 0 (0-100) /uL PT 11.7 (9.4-12.5) SECONDS INR 1.0 (0.9-1.3) APTT 26 (25.1-36.5) SECONDS Sodium 138 (137-145) mmol/L Potassium 3.7 (3.4-5.1) mmol/L Chloride 105 (98-107) mmol/L Carbon Dioxide 24 (22-32) mmol/L BUN 28 H (7-17) mg/dL Creatinine 0.68 (0.52-1.04) mg/dL Estimated GFR > 60 (>60) mL/min BUN/Creatinine Ratio 41.2 H (6-22) Glucose 104 H (70-99) mg/dL Calcium 9.2 (8.4-10.2) mg/dL Magnesium 1.7 (1.6-2.3) mg/dL Total Bilirubin 0.5 (0.2-1.3) mg/dL AST 41 H (14-36) IU/L ALT 32 (<35) IU/L Alkaline Phosphatase 46 (38-126) U/L Total Creatine Kinase 148 H (30-135) U/L Troponin I < 0.012 < 0.012 (0.01-0.034) ng/mL NT-Pro-B Natriuret Pep 238 H (<125) pg/mL Total Protein 7.3 (6.3-8.2) g/dL Albumin 4.3 (3.5-5.0) g/dL Globulin 3.0 (1.7-4.1) g/dL Albumin/Globulin Ratio 1.4 (1.0-2.8) Lipase 187 (23-300) U/L [facility] Narrative Medical decision making narrative: The patient came in with atypical chest pain patient had 12 lead EKG reveals sinus rhythm at 71 beats per minute normal axis no blocks LVH no acute changes patient had chest x-ray read by the radiologist as negative patient has CBC with normals chemistry within normal limits patient 2- troponins. Patient will be discharged home with atypical chest pain Differential diagnosis angina chest wall pain pneumonia Discharge Plan Departure Patient Disposition: Home Clinical Impression: Atypical chest pain Instructions: DI for Atypical Chest Pain Prescriptions: No Action furosemide 40 mg tablet 40 mg PO DAILY escitalopram oxalate 20 mg tablet 20 mg PO DAILY Qty: 90 3RF rosuvastatin 10 mg tablet 10 mg PO DAILY Qty: 100 3RF estradiol [Vagifem] 10 mcg tablet 10 mcg vaginal 3XW Qty: 12 12RF tirzepatide 10 mg/0.5 mL pen injector See Rx Instructions .Route .COMPLEX Qty: 10 1RF Rx Instructions: 10mg w/ cyanocabalamin 0.5mg/ml SQ weekly dx D53.8, G47.33, & E66.3 lisinopril 5 mg tablet 5 mg PO DAILY potassium chloride 10 mEq tablet,ER particles/crystals 20 meq PO DAILY Prolia 60 mg/mL syringe 60 mg SUBCUT [id number] cholecalciferol (vitamin D3) 50 mcg (2,000 unit) capsule 4,000 unit PO DAILY aspirin 81 mg tablet,delayed release (DR/EC) 81 mg PO DAILY Referrals: Mel Sow DO [Primary Care Provider, Family Practice] - 3-5 days Stand Alone Forms: Patient Portal/API
[2025-09-10 19:53] LABS: PTT Partial Thromboplastin Tim 26 SECONDS (25.1-36.5)
[2025-09-10 20:08] LABS: Alanine Aminotransferase 32 IU/L (<35); Albumin 4.3 g/dL (3.5-5.0); Albumin Globulin Ratio 1.4 (1.0-2.8); Alkaline Phosphatase 46 U/L (38-126); Blood Urea Nitrogen 28 mg/dL (7-17); Calcium 9.2 mg/dL (8.4-10.2); Carbon Dioxide 24 mmol/L (22-32); Chloride 105 mmol/L (98-107); Creatine Kinase 148 U/L (30-135); Estimated Glomerular Filt Rate > 60 mL/min (>60); Globulin 3.0 g/dL (1.7-4.1); Glucose 104 mg/dL (70-99); HEMOLYSIS 19 (0-50); Lipase 187 U/L (23-300); Magnesium 1.7 mg/dL (1.6-2.3); Potassium 3.7 mmol/L (3.4-5.1); Sodium 138 mmol/L (137-145); Total Protein 7.3 g/dL (6.3-8.2)
[2025-09-10 20:19] LABS: NT-proBNP (BNP-Adult 18+) 238 pg/mL (<125); Troponin I < 0.012 ng/mL (0.01-0.034)
[2025-09-10 21:18] LABS: Add Manual Diff / Slide Review NO; Hematocrit 32.3 % (36-46); Hemoglobin 11.3 g/dL (12.0-16.0); Lymphocytes Absolute Auto 2000 /uL (1100-4500); Mean Corpuscular HGB Conc 34.8 % (30-36); Mean Corpuscular Hemoglobin 32.5 PG (26-34); Mean Corpuscular Volume 93.4 fL (80-100); Platelet Count 185 X10^3/uL (150-400)
[2025-09-10 22:52] LABS: Troponin I < 0.012 ng/mL (0.01-0.034)
== END 2025-09-10 23:09 | disposition home or self-care (01) ==
PROVIDERS: Emergency Provider Emergency Medicine; PCP Family Medicine
DX: R07.89 Other chest pain (principal)
CPT/HCPCS: 36415; 71045; 80053; 82550; 83690; 83735; 83880; 84484; 85025; 85610; 85730; 93005; 93010; 99283